=== PATIENT | female | born 1990 | race American Indian/Alaskan Native ===

== ENCOUNTER 2017-03-27 11:48 | Emergency (ER) | payer OTHER, MEDICAID ==
--- NOTE | 2017-03-27 13:12 | EDM.PDOC ---
ED HPI GENERAL MEDICAL PROBLEM - General Chief Complaint: Abdominal Pain Stated Complaint: LOWER, RT SIDE PAIN Time Seen by Provider: 03/27/17 13:08 Source of Information: Reports: Patient, RN, RN Notes Reviewed History Limitations: Reports: No Limitations - History of Present Illness INITIAL COMMENTS - FREE TEXT/NARRATIVE: Patient presents to the ER with c/o right lower quadrant pain. She states the pain began 2 days ago. She states she bent over and felt a "pop". The pain has been present and significant since then. Patient denies fever, chills, sob, chest pain. Admits to nausea at times, but denies vomiting. She states she does not have a period as she has an IUD placed, and has not had any bleeding or spotting recently. Onset: Sudden Onset Date: 03/25/17 Location: Reports: Abdomen Quality: Reports: Sharp Severity: Moderate Improves with: Reports: None Worsens with: Reports: None Associated Symptoms: Reports: Nausea/Vomiting Right Lower Abdomen Pain Score (Numeric/FACES): 9 - Related Data Allergies Allergy/AdvReac Type Severity Reaction Status Date / Time No Known Allergies Allergy Verified 08/18/16 20:57 Home Meds: Home Meds . [No Known Home Meds] 07/15/16 [History] Past Medical History - Past Health History Medical/Surgical History: Denies Medical/Surgical History Other OB/BYN History: IUD in place - Past Surgical History Female Surgical History: Reports: Section Social & Family History - Tobacco Use Smoking Status *Q: Never Smoker Second Hand Smoke Exposure: No - Caffeine Use Caffeine Use: Reports: Soda, Tea - Alcohol Use Days Per Week of Alcohol Use: 0 - Recreational Drug Use Recreational Drug Use: No ED ROS GENERAL - Review of Systems Review Of Systems: ROS reveals no pertinent complaints other than HPI. ED EXAM, GI/ABD - Physical Exam Exam: See Below Exam Limited By: No Limitations General Appearance: Alert, WD/WN, No Apparent Distress Eyes: Bilateral: Normal Appearance Ears: Normal External Exam, Hearing Grossly Normal Nose: Normal Inspection, Normal Mucosa, No Blood Throat/Mouth: Normal Inspection, Normal Lips, Normal Teeth, Normal Gums, Normal Voice, No Airway Compromise Head: Atraumatic, Normocephalic Neck: Normal Inspection, Supple, Non-Tender, Full Range of Motion Respiratory/Chest: No Respiratory Distress, Lungs Clear, Normal Breath Sounds, No Accessory Muscle Use, Chest Non-Tender Cardiovascular: Normal Peripheral Pulses, Regular Rate, Rhythm, No Edema, No Gallop, No JVD, No Murmur, No Rub GI/Abdominal Exam: Normal Bowel Sounds, Soft, No Organomegaly, No Distention, No Abnormal Bruit, No Mass, Pelvis Stable, Guarding, Tender (Female) Exam: Deferred Rectal (Female) Exam: Deferred Back Exam: Normal Inspection, Full Range of Motion, NT Extremities: Normal Inspection, Normal Range of Motion, Non-Tender, Normal Capillary Refill, No Pedal Edema Neurological: Alert, Oriented, Normal Cognition, Normal Gait, No Motor/Sensory Deficits Psychiatric: Normal Affect, Normal Mood Skin Exam: Warm, Dry, Intact, Normal Color, No Rash Lymphatic: No Adenopathy Course - Vital Signs Last Recorded V/S: Last Vital Signs Temp 98.2 F 03/27/17 14:33 Pulse 68 03/27/17 14:33 Resp 16 03/27/17 14:33 BP 118/60 03/27/17 14:33 Pulse Ox 100 03/27/17 14:33 - Orders/Labs/Meds Orders: Active Orders 24 hr Category Date Time Status Pelvis Non OB Ltd [US] Urgent Exams 03/27/17 13:45 Taken Labs: Laboratory Tests 03/27/17 03/27/17 03/27/17 Range/Units 12:41 12:41 12:41 WBC (5.0-10.0) 10^3/uL RBC (4.2-5.4) 10^6/uL Hgb (12.0-16.0) g/dL Hct (37.0-47.0) % MCV (80-100) fL MCH (27.0-34.0) pg MCHC (33.0-35.0) g/dL Plt Count (150-450) 10^3/uL Neut % (Auto) (42.2-75.2) % Lymph % (Auto) (20.5-50.1) % Hand % (Auto) (2-8) % Eos % (Auto) (1.0-3.0) % Baso % (Auto) (0.0-1.0) % Sodium (135-145) mmol/L Potassium (3.6-5.0) mmol/L Chloride (101-111) mmol/L Carbon Dioxide (21.0-31.0) mmol/L Anion Gap BUN (7-18) mg/dL Creatinine (0.6-1.3) mg/dL Est Cr Clr Drug Dosing Estimated GFR (MDRD) BUN/Creatinine Ratio Glucose (74-105) mg/dL Calcium (8.4-10.2) mg/dl Total Bilirubin (0.2-1.0) mg/dL AST (10-42) IU/L ALT (10-60) IU/L Alkaline Phosphatase (42-121) IU/L Total Protein (6.7-8.2) g/dl Albumin (3.2-5.5) g/dl Globulin Albumin/Globulin Ratio Amylase (28-100) U/L Lipase (22-51) U/L Urine Color Yellow (YELLOW) Urine Appearance Cloudy (CLEAR) Urine pH 7.5 (5.0-9.0) Ur Specific [place] 1.025 (1.005-1.030) Urine Protein Negative (NEGATIVE) Urine Glucose (UA) Negative (NEGATIVE) Urine Ketones Negative (NEGATIVE) Urine Occult Blood Negative (NEGATIVE) Urine Nitrite Negative (NEGATIVE) Urine Bilirubin Negative (NEGATIVE) Urine Urobilinogen 0.2 (0.2-1.0) mg/dL Ur Leukocyte Esterase Negative (NEGATIVE) Urine RBC 0-5 /HPF Urine WBC 0-5 (0-5/HPF) /HPF Ur Epithelial Cells Many H /HPF Urine Bacteria Moderate H (0-FEW/HPF) /HPF Urine HCG, Qual Negative Urine Opiates Screen Negative (NEGATIVE) Ur Oxycodone Screen Negative (NEGATIVE) Urine Methadone Screen Negative (NEGATIVE) Ur Barbiturates Screen Negative (NEGATIVE) U Tricyclic Antidepress Negative (NEGATIVE) Ur Phencyclidine Scrn Negative (NEGATIVE) Ur Amphetamine Screen Negative (NEGATIVE) U Methamphetamines Scrn Negative (NEGATIVE) Urine MDMA Screen Negative (NEGATIVE) U Benzodiazepines Scrn Negative (NEGATIVE) Urine Cocaine Screen Negative (NEGATIVE) U Marijuana (THC) Screen Negative (NEGATIVE) 03/27/17 03/27/17 Range/Units 13:14 13:14 WBC 8.9 (5.0-10.0) 10^3/uL RBC 4.71 (4.2-5.4) 10^6/uL Hgb 14.3 (12.0-16.0) g/dL Hct 42.1 (37.0-47.0) % MCV 89.4 (80-100) fL MCH 30.4 (27.0-34.0) pg MCHC 34.0 (33.0-35.0) g/dL Plt Count 186 (150-450) 10^3/uL Neut % (Auto) 69.5 (42.2-75.2) % Lymph % (Auto) 20.1 L (20.5-50.1) % Hand % (Auto) 8.4 H (2-8) % Eos % (Auto) 1.6 (1.0-3.0) % Baso % (Auto) 0.4 (0.0-1.0) % Sodium 137 (135-145) mmol/L Potassium 3.8 (3.6-5.0) mmol/L Chloride 101 (101-111) mmol/L Carbon Dioxide 27.0 (21.0-31.0) mmol/L Anion Gap 12.8 BUN 8 (7-18) mg/dL Creatinine 0.5 L (0.6-1.3) mg/dL Est Cr Clr Drug Dosing TNP Estimated GFR (MDRD) > 60 BUN/Creatinine Ratio 16.00 Glucose 85 (74-105) mg/dL Calcium 9.3 (8.4-10.2) mg/dl Total Bilirubin 0.6 (0.2-1.0) mg/dL AST 21 (10-42) IU/L ALT 35 (10-60) IU/L Alkaline Phosphatase 64 (42-121) IU/L Total Protein 7.5 (6.7-8.2) g/dl Albumin 4.3 (3.2-5.5) g/dl Globulin 3.2 Albumin/Globulin Ratio 1.34 Amylase 47 (28-100) U/L Lipase 24 (22-51) U/L Urine Color (YELLOW) Urine Appearance (CLEAR) Urine pH (5.0-9.0) Ur Specific [place] (1.005-1.030) Urine Protein (NEGATIVE) Urine Glucose (UA) (NEGATIVE) Urine Ketones (NEGATIVE) Urine Occult Blood (NEGATIVE) Urine Nitrite (NEGATIVE) Urine Bilirubin (NEGATIVE) Urine Urobilinogen (0.2-1.0) mg/dL Ur Leukocyte Esterase (NEGATIVE) Urine RBC /HPF Urine WBC (0-5/HPF) /HPF Ur Epithelial Cells /HPF Urine Bacteria (0-FEW/HPF) /HPF Urine HCG, Qual Urine Opiates Screen (NEGATIVE) Ur Oxycodone Screen (NEGATIVE) Urine Methadone Screen (NEGATIVE) Ur Barbiturates Screen (NEGATIVE) U Tricyclic Antidepress (NEGATIVE) Ur Phencyclidine Scrn (NEGATIVE) Ur Amphetamine Screen (NEGATIVE) U Methamphetamines Scrn (NEGATIVE) Urine MDMA Screen (NEGATIVE) U Benzodiazepines Scrn (NEGATIVE) Urine Cocaine Screen (NEGATIVE) U Marijuana (THC) Screen (NEGATIVE) Meds: Medications Discontinued Medications Generic Name Dose Route Start Last Admin Trade Name Freq PRN Reason Stop Dose Admin Tramadol HCl 50 mg 03/27/17 14:35 03/27/17 14:42 Ultram PO 03/27/17 14:36 50 mg ONETIME ONE Administration - Radiology Interpretation Free Text/Narrative:: Pelvic US and Transvaginal US: Small hemorrhagic cyst right ovary. No evidence of or abnormal adnexal mass. See rad report Departure - Departure Time of Disposition: 14:37 Disposition: Home, Self-Care 01 Condition: Fair Clinical Impression: Abdominal pain Qualifiers: Abdominal location: right lower quadrant Qualified Code(s): R10.31 - Right lower quadrant pain - Discharge Information Instructions: Abdominal Pain, Adult, [id number], Pain Medicine Instructions, [id number] Forms: ED Department Discharge Additional Instructions: Follow up with Dr. Morrow at [facility]. Tramadol 50mg orally once every 4-6 hours as needed for pain. Tylenol every 4 hours as needed for pain. Ibuprofen every 6-8 hours as needed for pain. - My Orders Last 24 Hours: My Active Orders 03/27/17 13:45 Pelvis Non OB Ltd [US] Urgent - Assessment/Plan Last 24 Hours: My Active Orders 03/27/17 13:45 Pelvis Non OB Ltd [US] Urgent
[2017-03-27 13:39] LABS: CHLORIDE,CL 101 mmol/L (101-111); SODIUM,NA 137 mmol/L (135-145)
[2017-03-27 14:33] VITALS: BP 118/60
[2017-03-27] MEDS ORDERED: traMADol 50 MG Tab PO ONE (14:35)
--- NOTE | 2017-03-27 14:49 | US ---
Clinical history: 26-year-old female right lower quadrant pain and history of IUD. Interpretation: (transabdominal and endovaginal probes) uterus retroverted in the midline and the IUD is located centrally in the endometrial canal, lower half of the uterus but appears to extend latera lly into the muscle, on the left, upper uterine segment. No myometrial fibroid mass lesion and no sign of intra or extrauterine gestational sac. Small ovaries with physiologic type cysts and larger dominant cyst on the right with internal echoes (hemorrhagic?). No sign of extraovarian adnexal mass lesion or free fluid in the cul-de-sac. CONCLUSION: Retroverted uterus with IUD (see comments above). Small hemorrhagic cyst right ovary. No evidence of or abnormal adnexal mass.
== END 2017-03-27 14:55 | disposition home or self-care (01) ==
LOC: DL.ED 11:48
DX: N83.201 Unspecified ovarian cyst, right side (principal)
CPT/HCPCS: 36415; 76830; 76857; 80053; 80305; 81001; 81025; 82150; 83690; 85025; 99284; A9270

== ENCOUNTER 2017-10-21 17:31 | Emergency (ER) | payer OTHER, MEDICAID ==
[2017-10-21 18:06] VITALS: BP 119/75
[2017-10-21] MEDS ORDERED: Clindamycin HCl 150 MG Cap PO ONE (19:24)
[2017-10-21] MEDS ORDERED: Acetaminophen/HYDROcodone 325-10 MG Tab PO ONE (19:24)
--- NOTE | 2017-10-21 19:31 | EDM.PDOC ---
ED HPI GENERAL MEDICAL PROBLEM - General Chief Complaint: Skin Complaint Stated Complaint: BUMP ON STOMACH Time Seen by Provider: 10/21/17 19:25 Source of Information: Reports: Patient History Limitations: Reports: No Limitations - History of Present Illness INITIAL COMMENTS - FREE TEXT/NARRATIVE: few month's h/o on-off lump. PMD told to use ABX oint but came back again now feeling worse. Right Lower Abdomen Pain Score (Numeric/FACES): 7 - Related Data Allergies Allergy/AdvReac Type Severity Reaction Status Date / Time No Known Allergies Allergy Verified 10/21/17 18:12 Home Meds: Home Meds . [No Known Home Meds] 07/15/16 [History] Past Medical History - Past Health History Medical/Surgical History: Denies Medical/Surgical History Other OB/BYN History: IUD in place Other Dermatologic History: 4 cm area to right lower abdomen reddened around a healing wound - Past Surgical History Head Surgeries/Procedures: Reports: None Female Surgical History: Reports: Section Social & Family History - Family History Family Medical History: Noncontributory - Tobacco Use Smoking Status *Q: Never Smoker Second Hand Smoke Exposure: Yes - Caffeine Use Caffeine Use: Reports: None - Alcohol Use Days Per Week of Alcohol Use: 1 Number of Drinks Per Day: 1 Total Drinks Per Week: 1 - Recreational Drug Use Recreational Drug Use: No ED ROS GENERAL - Review of Systems Review Of Systems: ROS reveals no pertinent complaints other than HPI. ED EXAM, SKIN/RASH Exam: See Below Exam Limited By: No Limitations General Appearance: Alert, WD/WN, Mild Distress, Other (discomfort) Ears: Hearing Grossly Normal Throat/Mouth: Normal Voice, No Airway Compromise Head: Atraumatic Neck: Non-Tender, Full Range of Motion Respiratory/Chest: No Respiratory Distress Cardiovascular: Regular Rate, Rhythm GI/Abdominal: Soft, Non-Tender, Other (3/4" size abscess non flutuant with mild local erythema no lymphangitis) Neurological: Alert, Oriented, Normal Cognition, Normal Gait, No Motor/Sensory Deficits Psychiatric: Tearful Skin: Warm, Dry, Normal Color Location, Skin: Abdomen Characteristics: Erythematous Associated features: Tenderness, Inflammation Lymphatic: No Adenopathy Course - Vital Signs Last Recorded V/S: Last Vital Signs Temp 36.8 C 10/21/17 18:03 Pulse 85 10/21/17 18:03 Resp 16 10/21/17 18:03 BP 119/75 10/21/17 18:03 Pulse Ox 98 10/21/17 18:03 - Orders/Labs/Meds Meds: Medications Discontinued Medications Generic Name Dose Route Start Last Admin Trade Name Freq PRN Reason Stop Dose Admin Hydrocodone Bitart/Acetaminophen 1 tab 10/21/17 19:24 [place] 325-10 Mg PO 10/21/17 19:25 ONETIME ONE Clindamycin HCl 150 mg 10/21/17 19:24 Cleocin PO 10/21/17 19:25 ONETIME ONE Departure - Departure Time of Disposition: 19:29 Disposition: Home, Self-Care 01 Condition: Good Clinical Impression: Abscess - Discharge Information Instructions: Skin Abscess, [id number] Additional Instructions: 1) use hot compress 3 times daily to abscess 2) keep it clean dry covered 3) follow up at clinic if no improvement in 48 hours 4) recheck if looks worse rx given; clindamycin 150mg qid x 40 vicodin 5/325 bid prn x 6
== END 2017-10-21 19:37 | disposition home or self-care (01) ==
LOC: DL.ED 17:31
DX: L02.211 Cutaneous abscess of abdominal wall (principal)
CPT/HCPCS: 99282; A9270

== ENCOUNTER 2017-10-25 07:48 | Emergency (ER) | payer OTHER, MEDICAID ==
[2017-10-25 07:59] VITALS: BP 113/67
--- NOTE | 2017-10-25 08:30 | EDM.PDOC ---
ED HPI GENERAL MEDICAL PROBLEM - General Chief Complaint: Upper Extremity Injury/Pain Stated Complaint: CAN'T MOVE NECK,LEFT SIDE OF BODY Time Seen by Provider: 10/25/17 08:15 Source of Information: Reports: Patient, RN, RN Notes Reviewed History Limitations: Reports: No Limitations - History of Present Illness INITIAL COMMENTS - FREE TEXT/NARRATIVE: Pt presents to the ER with c/o neck pain. Pt states on Sunday she was bumped in the elbow and she now has pain in the upper arm, shoulder, and neck, which has progressively gotten worse. She states she has limited range of motion in the neck. Patient states she has taken ibuprofen x1 today, and has been using heat. Patient denies fever, chills, cough, sore throat, N/V/D. Onset: Sudden Onset Date: 10/22/17 Duration: Getting Worse Location: Reports: Neck Quality: Reports: Ache, Pressure Severity: Moderate Improves with: Reports: None Worsens with: Reports: None Associated Symptoms: Reports: Headaches Treatments [employer]UTION DES[employer]ER: Reports: NSAIDS Left Neck Pain Score (Numeric/FACES): 8 - Related Data Allergies Allergy/AdvReac Type Severity Reaction Status Date / Time No Known Allergies Allergy Verified 10/25/17 07:58 Home Meds: Home Meds Clindamycin Hcl [IJD: Clindamycin] 150 mg PO QID 10/25/17 [History] Hydrocodone/Acetaminophen [Hydrocodon-Acetaminophen 5-325] 1 tab PO BID PRN [History] Ibuprofen [Advil] 400 mg PO ASDIRECTED PRN 10/25/17 [History] Past Medical History - Past Health History Medical/Surgical History: Denies Medical/Surgical History HEENT History: Reports: None Cardiovascular History: Reports: None Respiratory History: Reports: None Gastrointestinal History: Reports: None Genitourinary History: Reports: None Other OB/BYN History: IUD in place Musculoskeletal History: Reports: None Neurological History: Reports: None Psychiatric History: Reports: None Endocrine/Metabolic History: Reports: None Hematologic History: Reports: None Immunologic History: Reports: None Oncologic (Cancer) History: Reports: None Other Dermatologic History: 4 cm area to right lower abdomen reddened around a healing wound - Infectious Disease History Infectious Disease History: Reports: Chicken Pox - Past Surgical History Head Surgeries/Procedures: Reports: None Female Surgical History: Reports: Section Social & Family History - Family History Family Medical History: Noncontributory - Tobacco Use Smoking Status *Q: Never Smoker Second Hand Smoke Exposure: No - Caffeine Use Caffeine Use: Reports: None - Alcohol Use Days Per Week of Alcohol Use: 1 Number of Drinks Per Day: 1 Total Drinks Per Week: 1 - Recreational Drug Use Recreational Drug Use: No Review of Systems - Review of Systems Review Of Systems: ROS reveals no pertinent complaints other than HPI. ED EXAM, GENERAL - Physical Exam Exam: See Below Exam Limited By: No Limitations General Appearance: Alert, WD/WN, Mild Distress Eye Exam: Bilateral Eye: EOMI, Normal Inspection Ears: Normal External Exam, Hearing Grossly Normal Nose: Normal Inspection Throat/Mouth: Normal Inspection, Normal Lips, Normal Teeth, Normal Gums, Normal Oropharynx, Normal Voice, No Airway Compromise Head: Atraumatic, Normocephalic Neck: Normal Inspection, Limited Range of Motion, Tender Lateral Respiratory/Chest: No Respiratory Distress, Lungs Clear, Normal Breath Sounds, No Accessory Muscle Use, Chest Non-Tender Cardiovascular: Normal Peripheral Pulses, Regular Rate, Rhythm, No Edema, No Gallop, No JVD, No Murmur, No Rub Peripheral Pulses: 2+: Radial (L), Radial (R) GI/Abdominal: Normal Bowel Sounds, Soft, Non-Tender, No Organomegaly, No Distention, No Abnormal Bruit, No Mass (Female) Exam: Deferred Rectal (Female) Exam: Deferred Back Exam: Normal Inspection, Decreased Range of Motion Extremities: Normal Inspection, Normal Range of Motion, Non-Tender, Normal Capillary Refill, No Pedal Edema Neurological: Alert, Oriented, CN II-XII Intact, Normal Cognition, Normal Gait, Normal Reflexes, No Motor/Sensory Deficits Psychiatric: Normal Affect, Normal Mood Skin Exam: Warm, Dry, Intact, Normal Color, No Rash Lymphatic: No Adenopathy Course - Vital Signs Last Recorded V/S: Last Vital Signs Temp 97.4 F 10/25/17 07:54 Pulse 77 10/25/17 07:54 Resp 16 10/25/17 07:54 BP 113/67 10/25/17 07:54 Pulse Ox 100 10/25/17 07:54 Departure - Departure Time of Disposition: 08:27 Disposition: Home, Self-Care 01 Condition: Fair Clinical Impression: Muscle spasm, Muscle tension headache - Discharge Information Instructions: Muscle Cramps and Spasms, [id number] Forms: ED Department Discharge Additional Instructions: May use Excedrin over the counter as directed for headaches Ibuprofen as directed for muscle pain Biofreeze or IcyHot as directed for muscle pains Heat, massage RX: Flexeril Follow up with your primary care facility
== END 2017-10-25 08:51 | disposition home or self-care (01) ==
LOC: DL.ED 07:48
DX: G44.209 Tension-type headache, unspecified, not intractable (principal); M62.838 Other muscle spasm
CPT/HCPCS: 99283

== ENCOUNTER 2018-03-05 10:10 | Emergency (ER) | payer MEDICAID, OTHER ==
--- NOTE | 2018-03-05 10:31 | EDM.PDOC ---
ED HPI GENERAL MEDICAL PROBLEM - General Chief Complaint: Abdominal Pain Stated Complaint: STOMACH PAIN, CRAMPS Time Seen by Provider: 03/05/18 10:31 Source of Information: Reports: Patient, Old Records, RN, RN Notes Reviewed History Limitations: Reports: No Limitations - History of Present Illness INITIAL COMMENTS - FREE TEXT/NARRATIVE: Pt c/o lower abdominal pain and left flank pain x3 days. At first the pain would come and go, but today it is persistent. Admits to nausea, and mild chills , and mild urinary urgency. Denies radiating pain, fever, vomiting, or vaginal discharge. Denies Hx of STD's or any STD exposures. Denies Hx of PID. Onset: Gradual Duration: Day(s): (3) Quality: Reports: Pressure Severity: Moderate Improves with: Reports: None Worsens with: Reports: None Associated Symptoms: Reports: No Other Symptoms Lower Abdomen Pain Score (Numeric/FACES): 10 - Related Data Allergies Allergy/AdvReac Type Severity Reaction Status Date / Time No Known Allergies Allergy Verified 03/05/18 10:15 Home Meds: Home Meds . 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 Musculoskeletal History: Reports: None Neurological History: Reports: None Psychiatric History: Reports: None Endocrine/Metabolic History: Reports: None Hematologic History: Reports: None Immunologic History: Reports: None Oncologic (Cancer) History: Reports: None Other Dermatologic History: 4 cm area to right lower abdomen reddened around a healing wound - Infectious Disease History Infectious Disease History: Reports: Chicken Pox - Past Surgical History Head Surgeries/Procedures: Reports: None Female Surgical History: Reports: Section Social & Family History - Family History Family Medical History: Noncontributory - Tobacco Use Smoking Status *Q: Never Smoker Second Hand Smoke Exposure: No - Caffeine Use Caffeine Use: Reports: Soda - Recreational Drug Use Recreational Drug Use: No - Living Situation & Occupation Living situation: Reports: with Family Occupation: Employed ED ROS GENERAL - Review of Systems Review Of Systems: ROS reveals no pertinent complaints other than HPI. ED EXAM, GI/ABD - Physical Exam Exam: See Below Exam Limited By: No Limitations General Appearance: Alert, WD/WN, No Apparent Distress Eyes: Bilateral: Normal Appearance Nose: Normal Inspection Throat/Mouth: Normal Inspection, Normal Lips, Normal Teeth, Normal Gums, Normal Oropharynx, Normal Voice, No Airway Compromise Head: Atraumatic, Normocephalic Neck: Normal Inspection, Supple, Non-Tender, Full Range of Motion Respiratory/Chest: No Respiratory Distress, Lungs Clear, Normal Breath Sounds, No Accessory Muscle Use, Chest Non-Tender Cardiovascular: Normal Peripheral Pulses, Regular Rate, Rhythm, No Edema, No Gallop, No JVD, No Murmur, No Rub GI/Abdominal Exam: Normal Bowel Sounds, Soft, No Distention, No Mass, Tender ( mild suprapubic tenderness, no peritoneal signs). No: Guarding, Rigid, Rebound (Female) Exam: Deferred Rectal (Female) Exam: Deferred Back Exam: Full Range of Motion, CVA Tenderness (L). No: CVA Tenderness (R), Paraspinal Tenderness, Vertebral Tenderness Extremities: Normal Inspection Neurological: Alert, Oriented, CN II-XII Intact, Normal Cognition, Normal Gait, No Motor/Sensory Deficits Psychiatric: Normal Affect, Normal Mood Skin Exam: Warm, Dry, Intact, Normal Color, No Rash Course - Vital Signs Last Recorded V/S: Last Vital Signs Temp 36.3 C 03/05/18 10:17 Pulse 67 03/05/18 10:17 Resp 15 03/05/18 10:17 BP 127/58 L 03/05/18 10:17 Pulse Ox 100 03/05/18 10:17 - Orders/Labs/Meds Orders: Active Orders 24 hr Category Date Time Status CHLAMYDIA AND GONORRHEA BY TMA Routine Lab 03/05/18 12:12 Ordered CULTURE URINE [RM] Stat Lab 03/05/18 12:12 Ordered DRUG SCREEN URINE BIORAD [URCHEM] Stat Lab 03/05/18 11:20 Ordered HCG QUALITATIVE,URINE [URCHEM] Stat Lab 03/05/18 11:20 Ordered UA W/MICROSCOPIC [URIN] Stat Lab 03/05/18 11:20 Ordered Labs: Laboratory Tests 03/05/18 03/05/18 03/05/18 Range/Units 10:48 10:48 11:20 WBC 9.8 (5.0-10.0) 10^3/uL RBC 4.74 (4.2-5.4) 10^6/uL Hgb 13.8 (12.0-16.0) g/dL Hct 41.3 (37.0-47.0) % MCV 87.1 (80-100) fL MCH 29.1 (27.0-34.0) pg MCHC 33.4 (33.0-35.0) g/dL Plt Count 200 (150-450) 10^3/uL Neut % (Auto) 67.8 (42.2-75.2) % Lymph % (Auto) 22.5 (20.5-50.1) % [place] % (Auto) 8.1 H (2-8) % Eos % (Auto) 1.2 (1.0-3.0) % Baso % (Auto) 0.4 (0.0-1.0) % Sodium 138 (135-145) mmol/L Potassium 3.7 (3.6-5.0) mmol/L Chloride 103 (101-111) mmol/L Carbon Dioxide 28.0 (21.0-31.0) mmol/L Anion Gap 10.7 BUN 8 (7-18) mg/dL Creatinine 0.5 L (0.6-1.3) mg/dL Est Cr Clr Drug Dosing 148.53 mL/min Estimated GFR (MDRD) > 60 BUN/Creatinine Ratio 16.00 Glucose 97 (74-105) mg/dL Calcium 9.2 (8.4-10.2) mg/dl Total Bilirubin 0.8 (0.2-1.0) mg/dL AST 20 (10-42) IU/L ALT 16 (10-60) IU/L Alkaline Phosphatase 69 (42-121) IU/L Total Protein 7.5 (6.7-8.2) g/dl Albumin 4.3 (3.2-5.5) g/dl Globulin 3.2 Albumin/Globulin Ratio 1.34 Amylase 38 (28-100) U/L Lipase 31 (22-51) U/L Urine Color (YELLOW) Urine Appearance (CLEAR) Urine pH (5.0-9.0) Ur Specific Dickerson (1.005-1.030) Urine Protein (NEGATIVE) Urine Glucose (UA) (NEGATIVE) Urine Ketones (NEGATIVE) Urine Occult Blood (NEGATIVE) Urine Nitrite (NEGATIVE) Urine Bilirubin (NEGATIVE) Urine Urobilinogen (0.2-1.0) mg/dL Ur Leukocyte Esterase (NEGATIVE) Urine RBC /HPF Urine WBC (0-5/HPF) /HPF Ur Epithelial Cells /HPF Urine Bacteria (0-FEW/HPF) /HPF Urine HCG, Qual Negative Urine Opiates Screen (NEGATIVE) Ur Oxycodone Screen (NEGATIVE) Urine Methadone Screen (NEGATIVE) Ur Barbiturates Screen (NEGATIVE) U Tricyclic Antidepress (NEGATIVE) Ur Phencyclidine Scrn (NEGATIVE) Ur Amphetamine Screen (NEGATIVE) U Methamphetamines Scrn (NEGATIVE) Urine MDMA Screen (NEGATIVE) U Benzodiazepines Scrn (NEGATIVE) Urine Cocaine Screen (NEGATIVE) U Marijuana (THC) Screen (NEGATIVE) 03/05/18 03/05/18 Range/Units 11:20 11:20 WBC (5.0-10.0) 10^3/uL RBC (4.2-5.4) 10^6/uL Hgb (12.0-16.0) g/dL Hct (37.0-47.0) % MCV (80-100) fL MCH (27.0-34.0) pg MCHC (33.0-35.0) g/dL Plt Count (150-450) 10^3/uL Neut % (Auto) (42.2-75.2) % Lymph % (Auto) (20.5-50.1) % Dallas % (Auto) (2-8) % Eos % (Auto) (1.0-3.0) % Baso % (Auto) (0.0-1.0) % Sodium (135-145) mmol/L Potassium (3.6-5.0) mmol/L Chloride (101-111) mmol/L Carbon Dioxide (21.0-31.0) mmol/L Anion Gap BUN (7-18) mg/dL Creatinine (0.6-1.3) mg/dL Est Cr Clr Drug Dosing mL/min Estimated GFR (MDRD) BUN/Creatinine Ratio Glucose (74-105) mg/dL Calcium (8.4-10.2) mg/dl Total Bilirubin (0.2-1.0) mg/dL AST (10-42) IU/L ALT (10-60) IU/L Alkaline Phosphatase (42-121) IU/L Total Protein (6.7-8.2) g/dl Albumin (3.2-5.5) g/dl Globulin Albumin/Globulin Ratio Amylase (28-100) U/L Lipase (22-51) U/L Urine Color Yellow (YELLOW) Urine Appearance Cloudy (CLEAR) Urine pH 7.0 (5.0-9.0) Ur Specific Dickerson 1.025 (1.005-1.030) Urine Protein Negative (NEGATIVE) Urine Glucose (UA) Negative (NEGATIVE) Urine Ketones Negative (NEGATIVE) Urine Occult Blood Small H (NEGATIVE) Urine Nitrite Negative (NEGATIVE) Urine Bilirubin Negative (NEGATIVE) Urine Urobilinogen 0.2 (0.2-1.0) mg/dL Ur Leukocyte Esterase Large H (NEGATIVE) Urine RBC 5-10 H /HPF Urine WBC 75-100 H (0-5/HPF) /HPF Ur Epithelial Cells Many H /HPF Urine Bacteria Many H (0-FEW/HPF) /HPF Urine HCG, Qual Urine Opiates Screen Negative (NEGATIVE) Ur Oxycodone Screen Negative (NEGATIVE) Urine Methadone Screen Negative (NEGATIVE) Ur Barbiturates Screen Negative (NEGATIVE) U Tricyclic Antidepress Negative (NEGATIVE) Ur Phencyclidine Scrn Negative (NEGATIVE) Ur Amphetamine Screen Negative (NEGATIVE) U Methamphetamines Scrn Negative (NEGATIVE) Urine MDMA Screen Negative (NEGATIVE) U Benzodiazepines Scrn Negative (NEGATIVE) Urine Cocaine Screen Negative (NEGATIVE) U Marijuana (THC) Screen Negative (NEGATIVE) Departure - Departure Time of Disposition: 12:10 Disposition: Home, Self-Care 01 Condition: Good Clinical Impression: UTI (urinary tract infection) Qualifiers: Urinary tract infection type: acute cystitis Hematuria presence: without hematuria Qualified Code(s): N30.00 - Acute cystitis without hematuria - Discharge Information Instructions: Urinary Tract Infection, Adult Forms: ED Department Discharge Additional Instructions: Rx: Cipro 500mg Drink plenty of water. Follow up in clinic in 7 to 10 days for urine recheck. Return to ER if worse at any time. - My Orders Last 24 Hours: My Active Orders 03/05/18 11:20 DRUG SCREEN URINE BIORAD [URCHEM] Stat HCG QUALITATIVE,URINE [URCHEM] Stat UA W/MICROSCOPIC [URIN] Stat 03/05/18 12:12 CHLAMYDIA AND GONORRHEA BY TMA Routine CULTURE URINE [RM] Stat - Assessment/Plan Last 24 Hours: My Active Orders 03/05/18 11:20 DRUG SCREEN URINE BIORAD [URCHEM] Stat HCG QUALITATIVE,URINE [URCHEM] Stat UA W/MICROSCOPIC [URIN] Stat 03/05/18 12:12 CHLAMYDIA AND GONORRHEA BY TMA Routine CULTURE URINE [RM] Stat
[2018-03-05 11:22] LABS: ANION GAP 10.7; CHLORIDE,CL 103 mmol/L (101-111); SODIUM,NA 138 mmol/L (135-145)
[2018-03-05 12:15] VITALS: BP 111/58
== END 2018-03-05 12:16 | disposition home or self-care (01) ==
LOC: DL.ED 10:10
DX: N30.00 Acute cystitis without hematuria (principal)
CPT/HCPCS: 36415; 80053; 80305-QW; 81001; 81025; 82150; 83690; 85025; 87086; 87088; 87186; 87491; 87591; 99284

== ENCOUNTER 2020-01-08 14:44 | Emergency (ER) | payer MEDICAID, OTHER ==
[2020-01-08 15:09] VITALS: BP 105/74; PULSE 68
[2020-01-08] MEDS ORDERED: Ketorolac 30 MG/ML SDV IM ONE (15:18)
--- NOTE | 2020-01-08 15:25 | EDM.PDOC ---
ED HPI GENERAL MEDICAL PROBLEM - General Chief Complaint: Neck Problem Stated Complaint: NECK STIFFNESS Time Seen by Provider: 01/08/20 15:10 Source of Information: Reports: Patient History Limitations: Reports: No Limitations - History of Present Illness INITIAL COMMENTS - FREE TEXT/NARRATIVE: This 29 yo female patient reports to the ED with right sided neck pain and stiffness. The patient reports she noticed the neck pain when she got up this morning. The patient reports she noticed some left leg tingling and weakness when she was getting out of bed, but reports her neck feels normal at this time. The patient denies any history of trauma, falls or known neck injuries. 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, Other (see below) Other Treatments VOCATIONAL REHABILITATION SUPERVISOR: biofreeze Neck Pain Score (Numeric/FACES): 5 - Related Data Allergies Allergy/AdvReac Type Severity Reaction Status Date / Time No Known Allergies Allergy Verified 01/08/20 14:51 Home Meds: Home Meds Acetaminophen [Tylenol] 650 mg PO ASDIRECTED PRN 01/08/20 [History] Past Medical History - Past Health History Medical/Surgical History: Denies Medical/Surgical History HEENT History: Reports: None Cardiovascular History: Reports: None Respiratory History: Reports: None Gastrointestinal History: Reports: None Genitourinary History: Reports: None 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 Musculoskeletal History: Reports: Other (See Below) Other Musculoskeletal History: Neck pain started today Neurological History: Reports: None Psychiatric History: Reports: None Endocrine/Metabolic History: Reports: None Hematologic History: Reports: None Immunologic History: Reports: None Oncologic (Cancer) History: Reports: None Dermatologic History: Reports: Other (See Below) Other Dermatologic History: Area healed - Infectious Disease History Infectious Disease History: Reports: Chicken Pox - Past Surgical History Head Surgeries/Procedures: Reports: None Female Surgical History: Reports: Section Musculoskeletal Surgical History: Reports: None Social & Family History - Family History Family Medical History: Noncontributory - Tobacco Use Smoking Status *Q: Never Smoker Second Hand Smoke Exposure: No - Caffeine Use Caffeine Use: Reports: Soda - Recreational Drug Use Recreational Drug Use: No - Living Situation & Occupation Living situation: Reports: with Family Occupation: Employed ED ROS GENERAL - Review of Systems Review Of Systems: Comprehensive ROS is negative, except as noted in HPI. ED EXAM, UPPER BACK/NECK PAIN - Physical Exam Exam: See Below Exam Limited By: No Limitations General Appearance: Alert, WD/WN, Moderate Distress Eye Exam: Bilateral Eye: EOMI, Normal Inspection, PERRL Ears Exam: Normal External Exam, Normal Canal, Hearing Grossly Normal, Normal TMs Nose Exam: Normal Inspection, Normal Mucousa, No Blood Throat/Mouth Exam: Normal Inspection, Normal Lips, Normal Teeth, Normal Gums, Normal Oropharynx, Normal Voice, No Airway Compromise Head Exam: Atraumatic, Normocephalic Neck Exam: Stiff Neck (right sided neck stiffness and tenderness to palpation) Nexus Criteria: No: Posterior, Midline Cervical Tenderness, Evidence of Intoxication, Altered Level of Consciousness, Focal Neurological Deficit, Painful Distraction Injuries Cardiovascular/Respiratory: Regular Rate, Rhythm, No M/R/G, Normal Peripheral Pulses, No JVD, Normal Breath Sounds, No Respiratory Distress GI/Abdominal: Normal Bowel Sounds, Soft, Non-Tender, No Organomegaly, No Distention, No Abnormal Bruit, No Mass (Female) Exam: Deferred Rectal (Female) Exam: Deferred Back Exam: Normal Inspection, Full Range of Motion, NT Extremities: Normal Inspection, Normal Range of Motion, Non-Tender, No Pedal Edema, Normal Capillary Refill Neurologic: director personal II-XII nml As Tested, Alert, Normal Mood/Affect, Oriented x 3 Psychiatric: Normal Affect, Normal Mood Skin Exam: Normal Color, Warm/Dry Lymphatic: No Adenopathy Course - Vital Signs Last Recorded V/S: Last Vital Signs Temp 37.2 C 01/08/20 14:57 Pulse 68 01/08/20 14:57 Resp 18 01/08/20 14:57 BP 105/74 01/08/20 14:57 Pulse Ox 99 01/08/20 14:57 - Orders/Labs/Meds Meds: Medications Discontinued Medications Generic Name Dose Route Start Last Admin Trade Name Freq PRN Reason Stop Dose Admin Ketorolac Tromethamine 60 mg 01/08/20 15:18 Toradol IM 01/08/20 15:19 ONETIME ONE Departure - Departure Time of Disposition: 15:25 Disposition: Home, Self-Care 01 Condition: Fair Clinical Impression: Strain of neck muscle Qualifiers: Encounter type: initial encounter Qualified Code(s): S16.1XXA - Strain of muscle, fascia and tendon at neck level, initial encounter - Discharge Information *PRESCRIPTION DRUG MONITORING PROGRAM REVIEWED*: Not Applicable *COPY OF PRESCRIPTION DRUG MONITORING REPORT IN PATIENT DEAN: Not Applicable Instructions: Cervical Sprain, Ghys-ex-Smur Care Plan Goals: The patient was advised of the examination results during the visit. The patient was given an injection of Toradol (60 mg) while in the ED. The patient was discharged with scripts for Toradol (10 mg) #20 to take 1 by mouth every 6 hours and Flexeril (10 mg) #10 to take 1 by mouth at bedtime as needed. If the patient has any additional symptoms or concerns, the patient should either return to the emergency department or visit her primary care facility. Sepsis Event Note (ED) - Evaluation Sepsis Screening Result: No Definite Risk - Focused Exam Vital Signs: Vital Signs Temp Pulse Resp BP Pulse Ox 01/08/20 14:57 37.2 C 68 18 105/74 99
== END 2020-01-08 15:37 | disposition home or self-care (01) ==
LOC: DL.ED 14:44
DX: S16.1XXA Strain of muscle, fascia and tendon at neck level, initial encounter (principal); X58.XXXA Exposure to other specified factors, initial encounter
CPT/HCPCS: 96372; 99283; J1885

== ENCOUNTER 2020-09-16 12:24 | Emergency (ER) | payer MEDICAID ==
[2020-09-16 12:38] VITALS: BP 113/60; PULSE 96
--- NOTE | 2020-09-16 13:06 | EDM.PDOC ---
<Eneida Cyr - Last Filed: 09/16/20 13:14> ED HPI GENERAL MEDICAL PROBLEM - General Chief Complaint: Skin Complaint Stated Complaint: RASH Time Seen by Provider: 09/16/20 12:50 Source of Information: Reports: Patient History Limitations: Reports: No Limitations - History of Present Illness INITIAL COMMENTS - FREE TEXT/NARRATIVE: Michelle is a 30 yo female who presents to the ED today with as rash in bilateral elbow creases, bilateral armpits, right crease of her groin, and over her breasts. She states the rash is itchy and began 2 days ago in her armpit, and began to spread over the course of two days. She denies the use of any new lotions, laundry detergents, soaps or foods, but states she did use a new perfume this week. She took a Benadryl yesterday with no relief. She also tried a first aid cream over the rash with no relief and applied heat to the rash which worsened her symptoms. She denies any cough, rhinorrhea, SOB, wheezing, or chest pain. She denies any allergies. Aside from this she offers no other acute concerns. 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 (see below) ("first aid" cream ) - Related Data Allergies Allergy/AdvReac Type Severity Reaction Status Date / Time No Known Allergies Allergy Verified 09/16/20 12:38 Home Meds: Home Meds Acetaminophen [Tylenol] 650 mg PO ASDIRECTED PRN 01/08/20 [History] Celecoxib [CeleBREX] 50 mg PO ASDIRECTED 09/16/20 [History] Past Medical History - Past Health History Medical/Surgical History: Denies Medical/Surgical History HEENT History: Reports: None Cardiovascular History: Reports: None Respiratory History: Reports: None Gastrointestinal History: Reports: None Genitourinary History: Reports: None 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 Musculoskeletal History: Reports: Other (See Below) Other Musculoskeletal History: Neck pain started today Neurological History: Reports: None Psychiatric History: Reports: None Endocrine/Metabolic History: Reports: None Hematologic History: Reports: None Immunologic History: Reports: None Oncologic (Cancer) History: Reports: None Dermatologic History: Reports: Other (See Below) Other Dermatologic History: Area healed - Infectious Disease History Infectious Disease History: Reports: Chicken Pox - Past Surgical History Head Surgeries/Procedures: Reports: None Female Surgical History: Reports: Section Musculoskeletal Surgical History: Reports: None Social & Family History - Family History Family Medical History: No Pertinent Family History - Tobacco Use Tobacco Use Status *Q: Never Tobacco User - Caffeine Use Caffeine Use: Reports: Coffee, Energy Drinks - Recreational Drug Use Recreational Drug Use: No - Living Situation & Occupation Living situation: Reports: with Family Occupation: Employed ED ROS GENERAL - Review of Systems Review Of Systems: Comprehensive ROS is negative, except as noted in HPI. ED EXAM, SKIN/RASH Exam Limited By: No Limitations General Appearance: Alert, WD/WN, No Apparent Distress Eye Exam: Bilateral Eye: EOMI, Normal Inspection Nose: Normal Inspection, Normal Mucosa, No Blood Throat/Mouth: Normal Inspection, Normal Lips, Normal Teeth, Normal Gums, Normal Oropharynx, Normal Voice, No Airway Compromise Head: Atraumatic, Normocephalic Respiratory/Chest: No Respiratory Distress, Lungs Clear, Normal Breath Sounds, No Accessory Muscle Use, Chest Non-Tender Cardiovascular: Normal Peripheral Pulses, Regular Rate, Rhythm, No Edema, No Gallop, No JVD, No Murmur, No Rub Extremities: Normal Inspection, Normal Range of Motion, Non-Tender, No Pedal Edema, Normal Capillary Refill Neurological: Alert, Oriented, CN II-XII Intact, Normal Cognition, Normal Gait, Normal Reflexes, No Motor/Sensory Deficits Psychiatric: Normal Affect, Normal Mood Skin: Warm, Dry, Rash (Located bilateral armpits, bilateral elbow creases, right fold of groin, and breasts. ) Characteristics: Urticarial Associated features: Warmth Departure - Departure Time of Disposition: 13:06 Disposition: Home, Self-Care 01 Condition: Good Clinical Impression: Urticaria - Discharge Information *PRESCRIPTION DRUG MONITORING PROGRAM REVIEWED*: No *COPY OF PRESCRIPTION DRUG MONITORING REPORT IN PATIENT DEAN: No Instructions: Rash, Adult Referrals: Johanna Sanchez NP [Primary Care Provider] - Forms: ED Department Discharge Care Plan Goals: -Prescription for triamcinolone 0.1% cream apply BID-TID until resolution of rash -Apply triamcinolone cream 2-3 times/day to affected areas until resolution of rash. Do not use for more than 2 weeks. -The patient may also take OTC Fatimah twice per day for the next 7 days to improve itching. -Keep areas with clean and dry. Avoid itching. -Follow up with primary care facility or ED if symptoms persist or worsen. Sepsis Event Note (ED) - Evaluation Sepsis Screening Result: No Definite Risk <Sharonda Hallman - Last Filed: 09/17/20 08:48> ED EXAM, SKIN/RASH Exam: See Below Course - Vital Signs Last Recorded V/S: Last Vital Signs Temp 98.3 F 09/16/20 12:34 Pulse 96 09/16/20 12:34 Resp 14 09/16/20 12:34 BP 113/60 09/16/20 12:34 Pulse Ox 98 09/16/20 12:34 - Re-Assessments/Exams Free Text/Narrative Re-Assessment/Exam: 09/16/20 I personally performed or re-performed the physical examination and medical decision making. I have verified all student documentation or findings, including history, physical exam and/or medical decision making.
== END 2020-09-16 13:18 | disposition home or self-care (01) ==
LOC: DL.ED 12:24
DX: L50.9 Urticaria, unspecified (principal)
CPT/HCPCS: 99282; 99283

== ENCOUNTER 2020-11-12 16:35 | Emergency (ER) | payer MEDICAID ==
[2020-11-12 17:53] LABS: ANION GAP 14.5 mEq/L (7-13); CHLORIDE,CL 97 mmol/L (98-107); SODIUM,NA 135 mmol/L (136-145)
[2020-11-12] MEDS ORDERED: cefTRIAXone 1 GM in Sodium Chloride 0.9% 50 ML IV ONE (18:51)
[2020-11-12] MEDS ORDERED: Sodium Chloride 0.9% 1,000 ML IV ONE (18:52)
[2020-11-12] MEDS ORDERED: Ketorolac 30 MG/ML SDV IVPUSH ONE (18:53)
--- NOTE | 2020-11-12 18:56 | EDM.PDOC ---
ED HPI GENERAL MEDICAL PROBLEM - General Chief Complaint: ENT Problem Stated Complaint: SORE THROAT Time Seen by Provider: 11/12/20 18:40 Source of Information: Reports: Patient, RN History Limitations: Reports: No Limitations - History of Present Illness INITIAL COMMENTS - FREE TEXT/NARRATIVE: 30-year-old female who presents to the ER with complaints of sore throat for the past 3 days. She reports she has tried so gargles a couple of times a day with little relief. She reports feeling like her throat is closing up and eating has been very painful. She states she has not had a meal in 3 days. Today, she reports mild fever. She denies any rash, shortness of breath, chest pain, chills, palpitations at this time. She states her throat feels like swallowing razor blades, pills. She also reports her neck feels swollen. Throat Pain Score (Numeric/FACES): 7 - Related Data Allergies Allergy/AdvReac Type Severity Reaction Status Date / Time No Known Allergies Allergy Verified 11/12/20 17:11 Home Meds: Home Meds Acetaminophen [Tylenol] 650 mg PO ASDIRECTED PRN 01/08/20 [History] Celecoxib [CeleBREX] 50 mg PO ASDIRECTED 09/16/20 [History] Past Medical History - Past Health History Medical/Surgical History: Denies Medical/Surgical History HEENT History: Reports: None Cardiovascular History: Reports: None Respiratory History: Reports: None Gastrointestinal History: Reports: None Genitourinary History: Reports: None SCREENING TECH History: Reports: Other (See Below) Other SCREENING TECH History: IUD removed three years ago Musculoskeletal History: Reports: Other (See Below) Other Musculoskeletal History: Neck pain started today Neurological History: Reports: None Psychiatric History: Reports: None Endocrine/Metabolic History: Reports: None Hematologic History: Reports: None Immunologic History: Reports: None Oncologic (Cancer) History: Reports: None Dermatologic History: Reports: Other (See Below) Other Dermatologic History: Area healed - Infectious Disease History Infectious Disease History: Reports: Chicken Pox, Novel Coronavirus - Past Surgical History Head Surgeries/Procedures: Reports: None Female Surgical History: Reports: Section Musculoskeletal Surgical History: Reports: None Social & Family History - Family History Family Medical History: No Pertinent Family History - Tobacco Use Tobacco Use Status *Q: Never Tobacco User - Caffeine Use Caffeine Use: Reports: None - Recreational Drug Use Recreational Drug Use: No - Living Situation & Occupation Living situation: Reports: with Family Occupation: Employed ED ROS ENT - Review of Systems Review Of Systems: Comprehensive ROS is negative, except as noted in HPI. ED EXAM, ENT - Physical Exam Exam: See Below General Appearance: Alert, Moderate Distress Eye Exam: Bilateral Eye: PERRL Ears: Normal External Exam, Normal Canal, Hearing Grossly Normal, Normal TMs Nose: Normal Inspection, Normal Mucousa, No Blood Mouth/Throat: Normal Inspection, Normal Gums, Normal Lips, Pharyngeal Erythema, Tonsillar Erythema Head: Atraumatic, Normocephalic Neck: No: Lymphadenopathy (L), Lymphadenopathy (R) Respiratory/Chest: No Respiratory Distress, Lungs Clear Cardiovascular: No Edema, Tachycardia GI/Abdominal: Normal Bowel Sounds, Soft, Non-Tender Neurological: Alert, Oriented Psychiatric: Normal Affect, Normal Mood Skin: Intact Course - Vital Signs Last Recorded V/S: Last Vital Signs Temp 99.5 F 11/12/20 19:41 Pulse 113 H 11/12/20 19:20 Resp 16 11/12/20 19:20 BP 103/66 11/12/20 19:20 Pulse Ox 100 11/12/20 19:20 - Orders/Labs/Meds Labs: Laboratory Tests 11/12/20 11/12/20 Range/Units 17:29 17:29 WBC 9.8 (5.0-10.0) 10^3/uL RBC 4.44 (4.2-5.4) 10^6/uL Hgb 12.9 (12.0-16.0) g/dL Hct 39.0 (37.0-47.0) % MCV 87.8 (80-100) fL MCH 29.1 (27.0-34.0) pg MCHC 33.1 (33.0-35.0) g/dL Plt Count 135 L (150-450) 10^3/uL Neut % (Auto) 72.1 (42.2-75.2) % Lymph % (Auto) 10.4 L (20.5-50.1) % [place] % (Auto) 17.1 H (2-8) % Eos % (Auto) 0.1 L (1.0-3.0) % Baso % (Auto) 0.3 (0.0-1.0) % Sodium 135 L (136-145) mmol/L Potassium 3.5 (3.5-5.1) mmol/L Chloride 97 L (98-107) mmol/L Carbon Dioxide 27 (21-32) mmol/L Anion Gap 14.5 H (7-13) mEq/L BUN 5 L (7-18) mg/dL Creatinine 0.74 (0.55-1.02) mg/dL Est Cr Clr Drug Dosing 93.63 mL/min Estimated GFR (MDRD) > 60 BUN/Creatinine Ratio 6.8 (No establ ref range) Glucose 96 (70-99) mg/dL Calcium 8.3 L (8.5-10.1) mg/dL Total Bilirubin 0.6 (0.2-1.0) mg/dL AST 33 (15-37) U/L ALT 57 (14-59) U/L Alkaline Phosphatase 94 (46-116) U/L Total Protein 7.5 (6.4-8.2) g/dL Albumin 3.5 (3.4-5.0) g/dL Globulin 4.0 Albumin/Globulin Ratio 0.9 Monoscreen Negative Meds: Medications Discontinued Medications Generic Name Dose Route Start Last Admin Trade Name Freq PRN Reason Stop Dose Admin Acetaminophen 975 mg 11/12/20 19:35 11/12/20 19:38 Acetaminophen 325 Mg Tab PO 11/12/20 19:36 975 mg NOW ONE Administration Acetaminophen Confirm 11/12/20 19:37 Acetaminophen 325 Mg Tab Administered 11/12/20 19:38 Dose 975 mg .ROUTE .STK-MED ONE Ceftriaxone Sodium Confirm 11/12/20 19:08 Ceftriaxone 1 Gm Vial Administered 11/12/20 19:09 Dose 1 gm .ROUTE .STK-MED ONE Ceftriaxone Sodium 1 gm/ 50 mls @ 100 mls/hr 11/12/20 18:51 11/12/20 19:14 Sodium Chloride IV 11/12/20 19:20 100 mls/hr ONETIME ONE Administration Sodium Chloride 1,000 mls @ 1,000 mls/hr 11/12/20 18:52 11/12/20 19:03 Normal Saline IV 11/12/20 19:51 1,000 mls/hr .BOLUS ONE Administration Sodium Chloride Confirm 11/12/20 19:10 Normal Saline Administered 11/12/20 19:11 Dose 100 mls @ as directed .ROUTE .STK-MED ONE Sodium Chloride Confirm 11/12/20 19:13 Normal Saline Administered 11/12/20 19:14 Dose 50 mls @ as directed .ROUTE .STK-MED ONE Ketorolac Tromethamine 30 mg 11/12/20 18:53 11/12/20 19:04 Ketorolac 30 Mg/Ml Sdv IVPUSH 11/12/20 18:54 30 mg ONETIME ONE Administration Ketorolac Tromethamine Confirm 11/12/20 19:00 Ketorolac 30 Mg/Ml Sdv Administered 11/12/20 19:01 Dose 30 mg .ROUTE .STK-MED ONE - Re-Assessments/Exams Free Text/Narrative Re-Assessment/Exam: Reviewed exam findings and labs results with patient. Initiated IV fluids, Rocephin 1g, Toradol 30 mg and Tylenol 1000 mg. Rx for amoxicillin send home with patient. Encouraged follow up in 3 days. Departure - Departure Time of Disposition: 02:06 Disposition: Home, Self-Care 01 Condition: Fair Clinical Impression: Strep pharyngitis Pharyngitis Qualifiers: Pharyngitis/tonsillitis etiology: streptococcus Qualified Code(s): J02.0 - Streptococcal pharyngitis - Discharge Information Instructions: Strep Throat, Adult, [id number] Referrals: Johanna Sanchez NP [Primary Care Provider] - Forms: ED Department Discharge Additional Instructions: Push fluids and rest. Recommended ibuprofen 600 mg every 6 hours as needed for discomfort with salt gargles 2-3 times a day. Finish antibiotic treatment and follow up with PCP in three days. Sepsis Event Note (ED) - Evaluation Sepsis Screening Result: No Definite Risk
[2020-11-12] MEDS ORDERED: Ketorolac 30 MG/ML SDV ONE (19:00)
[2020-11-12] MEDS ORDERED: cefTRIAXone 1 GM Vial ONE (19:08)
[2020-11-12] MEDS ORDERED: Sodium Chloride 0.9% 100 ML ONE (19:10)
[2020-11-12] MEDS ORDERED: Sodium Chloride 0.9% 50 ML ONE (19:13)
[2020-11-12 19:21] VITALS: BP 103/66; PULSE 113
[2020-11-12] MEDS ORDERED: Acetaminophen 325 MG Tab PO ONE (19:35)
[2020-11-12] MEDS ORDERED: Acetaminophen 325 MG Tab ONE (19:37)
== END 2020-11-12 20:06 | disposition home or self-care (01) ==
LOC: DL.ED 16:35
DX: J02.0 Streptococcal pharyngitis (principal); Z86.16 Personal history of COVID-19
CPT/HCPCS: 36415; 80053; 85025; 86308; 87430; 96365; 96375; 99283; 99283-25; A9270-GY; J0696; J1885; J7030

== ENCOUNTER 2023-03-26 20:48 | Emergency (ER) | payer SELFPAY ==
[2023-03-26 21:21] VITALS: BP 114/71; PULSE 70
[2023-03-26 21:59] LABS: APPEARANCE,URINE CLEAR (CLEAR); BILIRUBIN,URINE NEGATIVE (NEGATIVE); COLOR,URINE YELLOW (YELLOW); GLUCOSE,URINE NEGATIVE (NEGATIVE); KETONES,URINE NEGATIVE (NEGATIVE); LEUKOCYTE ESTERASE,URINE NEGATIVE (NEGATIVE); NITRITE,URINE NEGATIVE (NEGATIVE); OCCULT BLOOD,URINE NEGATIVE (NEGATIVE); PROTEIN,URINE NEGATIVE (NEGATIVE); UROBILINOGEN,URINE 0.2 mg/dL (0.2-1.0)
[2023-03-26] MEDS ORDERED: Sodium Chloride 0.9% 10 ML Syringe FLUSH PRN (22:12)
[2023-03-26 22:25] LABS: BASOPHILS PERCENT AUTO 0.4 % (0.0-1.0); EOSINOPHILS PERCENT AUTO 1.3 % (1.0-3.0); HEMATOCRIT 39.8 % (37.0-47.0); HEMOGLOBIN 13.5 g/dL (12.0-16.0); LYMPHOCYTES PERCENT AUTO 23.1 % (20.5-50.1); MEAN CORPUSCULAR HEMOGLOBIN 29.9 pg (27.0-34.0); MEAN CORPUSCULAR HGB CONC 33.9 g/dL (33.0-35.0); MEAN CORPUSCULAR VOLUME 88.1 fL (80-100); MONOCYTES PERCENT AUTO 7.7 % (2-8); NEUTROPHILS PERCENT AUTO 67.5 % (42.2-75.2); PLATELET COUNT,PLT 199 10^3/uL (150-450); RED BLOOD CELL COUNT 4.52 10^6/uL (4.2-5.4); WHITE BLOOD CELL COUNT,WBC 10.2 10^3/uL (5.0-10.0)
[2023-03-26 22:40] LABS: A/G RATIO 1.3; ANION GAP 11.4 mEq/L (7-13); BILIRUBIN TOTAL 0.3 mg/dL (0.2-1.0); BUN/CREATININE RATIO 17.1 (No establ ref range); CALCIUM 8.8 mg/dL (8.5-10.1); CREATININE 0.7 mg/dL (0.55-1.02); EST CRCL DRUG DOSING (CG) 97.21 mL/min; POTASSIUM,K 3.4 mmol/L (3.5-5.1); PROTEIN TOTAL,TP 7.1 g/dL (6.4-8.2)
[2023-03-26] MEDS ORDERED: Orphenadrine 60 MG/2 ML Inj IM ONE (22:43)
[2023-03-26] MEDS ORDERED: Ketorolac 30 MG/ML SDV IVPUSH ONE (22:43)
[2023-03-26] MEDS ORDERED: Iopamidol 612 MG/ML 100 ML Bottle IVPUSH ONE (23:16)
[2023-03-27] MEDS ORDERED: methylPREDNISolone Sodium Succinate 125 MG/2 ML SDV IVPUSH ONE (01:09)
[2023-03-27] MEDS ORDERED: Azithromycin 250 MG Tab PO ONE (01:09)
== END 2023-03-27 01:21 | disposition home or self-care (01) ==
LOC: DL.ED 20:48
DX: J98.11 Atelectasis (principal)
CPT/HCPCS: 36415; 74177; 80053; 81003; 81025; 85025; 96372; 96374; 96375; 99284; 99284-25; A9270-GY; J1885; J2360; J2930; J3490; Q9967